=== PATIENT | male | born 1965 | race Caucasian/White ===

== ENCOUNTER 2019-12-27 06:50 | Emergency (ER) | payer OTHER ==
[~2019-12-27] VITALS: Ht 175 cm; Wt 109.5 kg
[2019-12-27] MEDS ORDERED: TETANUS,DIPTH,PERTUSS P/F (BOOSTRIX) 0.5 ML VIAL IM ONE (07:15)
[2019-12-27] MEDS ORDERED: AMPICILLIN/SULBACTAM INJECTION 3 GM in NS (IVPB) 100 ML IV ONE (07:15)
[2019-12-27] MEDS ORDERED: ACETAMINOPHEN 325 MG TABLET PO ONE (07:15)
[2019-12-27] MEDS ORDERED: KETOROLAC 30 MG/ML VIAL IVP ONE (07:15)
--- NOTE | 2019-12-27 07:17 | ED General ---
General Stated Complaint: RIGHT HAND INJURY,CAT BITE History of Present Illness Date Seen by Provider: Dec 27, 2019 Time Seen by Provider: 06:52 Initial Comments The patient is a 54-year-old male with a history of hypertension and nephrolithiasis. His tetanus is not up-to-date. 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 He presents with concern for acute onset of right greater than left hand pain with onset last night after a cat he was helping a neighbor get down from a tree bit and scratched him extensively on both hands. Cat belongs to his neighbor and he was told its immunizations are up-to-date. Patient's most significant discomfort is noted to the volar aspect of his proximal right fifth digit which has bite neal and is contused and mildly swollen. Discomfort extends over the palmar hand proximal to this. He does have bites and scratches noted on both hands. He woke up this morning and pain and swelling were worse instead of better so he decided to come in for evaluation. He has not had any fevers, nausea or vomiting or other systemic symptoms. He is in no distress. He took Tylenol last night without relief of symptoms. Allergies and Home Medications Allergies Coded Allergies: No Known Drug Allergies (Unverified , 12/27/19) Home Medications Acetaminophen 500 Mg Tablet, 500 MG PO Q6H Prescribed by: CHARISMA MONCAAD on 12/27/19722 Amoxicillin/Potassium Clav 1 Each Tablet, 1 TAB PO BID Prescribed by: CHARISMA MONCADA on 12/27/19722 Diclofenac Potassium 50 Mg Tablet, 50 MG PO Q8H Prescribed by: CHARISMA MONCADA on 12/27/19722 Patient Home Medication List Home Medication List Reviewed: Yes Review of Systems Review of Systems Constitutional: see HPI All Other Systems Reviewed Negative Unless Noted: Yes (Negative excepted noted.) Past Kashmec-Svxxba-Bnkqso Hx Past Med/Social Hx: Reviewed Nursing Past Med/Soc Hx Patient Social History Recent Foreign Travel: No Contact w/Someone Who Travel: No Family Medical History Reviewed Nursing Family Hx Physical Exam Vital Signs Vital Signs - First Documented 12/27/19 07:15 Temp 36.8 Pulse 85 Resp 16 B/P (MAP) 143/96 (112) Pulse Ox 98 Capillary Refill : Height, Weight, BMI Height: '" Weight: lbs. oz. kg; BMI Method: General Appearance: No Apparent Distress Comments This is an older male appearing nontoxic and in no acute distress. Head is normocephalic and atraumatic. Neck supple and nontender. Oropharynx is moist. Lungs are clear to auscultation in all stations. There is a normal S1 and S2 without rubs or gallops and capillary refill is appropriate, less than 2 seconds globally. Abdomen is soft, nontender and nondistended. Skin is warm and dry without cyanosis, clubbing or edema. Psychiatrically, the patient demonstrates appropriate mood and affect and is alert. From a musculoskeletal s tandpoint, evaluation of the bilateral upper extremities is remarkable for scattered superficial bites and scratches to both hands, with the worst bite noted to the volar aspect of the right fifth digit proximal to the PIP joint. There is mild pain with ranging at this digit but patient does have full strength at every joint and full range of motion actively and passively at the right small finger. There is no fusiform/circumferential swelling of the affected finger. There is tenderness and mild swelling proximal to the finger over the palmar aspect of the right hand without any erythema. No pain with ranging of any other joint of the bilateral upper extremities which are both neurovascularly intact. Progress/Results/Core Measures Suspected Sepsis SIRS Temperature: Pulse: Respiratory Rate: Blood Pressure / Mean: Results/Orders My Orders Orders - CHARISMA MONCADA MD Iv/Invasive Line Insertion .IV start (12/27/19 07:08) Hand 3 View Left (12/27/19 07:08) Hand 3 View Right (12/27/19 07:08) Ketorolac Injection (Toradol Injection) (12/27/19 07:15) Acetaminophen Tablet/Caplet (Tylenol T (12/27/19 07:15) Ampicillin/Sulbactam Injection (Unasyn 3 (12/27/19 07:15) Dipht,Pertuss(Acell),Tet Adult (Boostrix (12/27/19 07:15) Medications Given in ED Current Medications Medications Dose Ordered Sig/Sneha Route Start Time Stop Time Status Last Admin Dose Admin Ampicillin Sodium/ Sulbactam Sodium 3 gm/Sodium Chloride 100 ml @ 200 mls/hr ONCE ONCE IV 12/27/19 07:15 12/27/19 07:44 DC 12/27/19 07:38 200 MLS/HR Diphtheria/ Tetanus/Acell Pertussis 0.5 ml ONCE ONCE IM 12/27/19 07:15 12/27/19 07:16 DC 12/27/19 07:42 0.5 ML Ketorolac Tromethamine 30 mg ONCE ONCE IVP 12/27/19 07:15 12/27/19 07:16 DC 12/27/19 07:38 30 MG Vital Signs/I&O 12/27/19 07:15 Temp 36.8 Pulse 85 Resp 16 B/P (MAP) 143/96 (112) Pulse Ox 98 Capillary Refill : Progress Note : Time: 07:17 Progress Note Right upper extremity with right fifth digit erythematous and swollen and tender at the volar aspect. Scattered bites and scratches elsewhere on the hands. No fusiform swelling/sausage digit at this time. Given the amount of discomfort and rather rapid progression of swelling, we will place an IV and give a dose of IV Unasyn as well as anti-inflammatory medicine as noted and will check plain films of the hands to ensure no retained tooth fragments or other foreign body and will plan for likely discharge with an Augmentin course and anti-inflammatories to follow up very closely with primary care in the next 2-4 days (we will refer pt to [facility]). Will update tetanus. 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 Patient has received his Unasyn dose and Toradol and is feeling better and is ready to go home. We will proceed with discharge as per plan. The patient understands that if he feels worse instead of better or develops other new symptoms of concern that he will need to return to the emergency department right away for reevaluation. All questions are answered. Diagnostic Imaging Comments HAND 3 VIEW LEFT INDICATION: Cat bite on bilateral hands TECHNIQUE: Three views of the left hand. CORRELATION STUDY: None FINDINGS: No acute bony abnormality. Alignment anatomic. Very mild narrowing through the interphalangeal joint. There are several small punctate metallic like soft tissue foreign bodies present. One at the tip of the thumb, distal middle finger and little finger as well as interposed between the 3rd and 4th metacarpals. Additional punctate density adjacent to the base of the thumb. IMPRESSION: 1. Negative for acute bony abnormality of the hand. Several small scattered likely metallic soft tissue foreign bodies. Dictated on workstation # [id number] HAND 3 VIEW RIGHT INDICATION: Cat bite on bilateral hands TECHNIQUE: Three views of the right hand. CORRELATION STUDY: None FINDINGS: No acute bony abnormality. Mild degenerative changes through the interphalangeal joints. No inocencio bony destructive or periarticular destruction. Soft tissues appearing generally unremarkable. No soft tissue foreign body. IMPRESSION: 1. Negative for acute bony abnormality of the hand. Dictated on workstation # [id number] Departure Impression Primary Impression: Cat bite of right hand including fingers with infection Qualified Codes: S61.451A - Open bite of right hand, initial encounter; S61.259A - Open bite of unspecified finger without damage to nail, initial encounter; L08.9 - Local infection of the skin and subcutaneous tissue, unspecified; W55.01XA - Bitten by cat, initial encounter Additional Impression: Cat bite of left hand Qualified Codes: S61.452A - Open bite of left hand, initial encounter; W55. 01XA - Bitten by cat, initial encounter Disposition: HOME, SELF-CARE Condition: Stable Departure-Patient Inst. Referrals: TIARA WALKER MD Patient Instructions: Animal and Human Bites, Animal Bites (DC) Add. Discharge Instructions: We are referring you to Dr. Walker in the [facility] clinic in this building for close outpatient follow-up. Please call today to make a follow-up appointment for Monday or Monday so that your wounds can be rechecked in the office. Use the pain medication and antibiotic as instructed for your symptoms and make sure to take the antibiotic until the entire prescription is gone. If symptoms worsen instead of getting better over the next day or two, or if you develop fevers or any other new and concerning symptoms, please return to the emergency department right away for reevaluation. Scripts Acetaminophen (Tylenol Extra Strength) 500 Mg Tablet 500 MG PO Q6H for Pain, #50 TAB Prov: CHARISMA MONCADA MD 12/27/19 Diclofenac Potassium (Diclofenac Potassium) 50 Mg Tablet 50 MG PO Q8H for pain/swelling, #30 TAB Prov: CHARISMA MONCADA MD 12/27/19 Amoxicillin/Potassium Clav (Augmentin 875-125 Tablet) 1 Each Tablet 1 TAB PO BID for 10 Days, #20 TAB 0 Refills Prov: CHARISMA MONCADA MD 12/27/19 Work/School Note: Family Work Note Patient Received Medical Care In the Emergency Department On: Dec 27, 2019 Patient Will Be Able to Return to Work/School On: Dec 30, 2019 Patient Restrictions: Non-weightbearing with right hand until Monday due to injury CHARISMA MONCADA MD Dec 27, 2019 07:17
[2019-12-27] MEDS ORDERED: AMOX-358 PO (07:23)
[2019-12-27] MEDS ORDERED: ACET-2267 PO (07:23)
[2019-12-27] MEDS ORDERED: DICL50TA4 PO (07:23)
--- NOTE | 2019-12-27 07:28 | Diagnostic Imaging Report ---
INDICATION: Cat bite on bilateral hands TECHNIQUE: Three views of the right hand. CORRELATION STUDY: None FINDINGS: No acute bony abnormality. Mild degenerative changes through the interphalangeal joints. No inocencio bony destructive or periarticular destruction. Soft tissues appearing generally unremarkable. No soft tissue foreign body. IMPRESSION: 1. Negative for acute bony abnormality of the hand. Dictated by: Dictated on workstation # [id number]
--- NOTE | 2019-12-27 07:31 | Diagnostic Imaging Report ---
INDICATION: Cat bite on bilateral hands TECHNIQUE: Three views of the left hand. CORRELATION STUDY: None FINDINGS: No acute bony abnormality. Alignment anatomic. Very mild narrowing through the interphalangeal joint. There are several small punctate metallic like soft tissue foreign bodies present. One at the tip of the thumb, distal middle finger and little finger as well as interposed between the 3rd and 4th metacarpals. Additional punctate density adjacent to the base of the thumb. IMPRESSION: 1. Negative for acute bony abnormality of the hand. Several small scattered likely metallic soft tissue foreign bodies. Dictated by: Dictated on workstation # [id number]
[2019-12-27 08:31] VITALS: BP 130/84
== END 2019-12-27 08:31 | disposition home or self-care (01) ==
LOC: ER FS 06:54
DX: S61.451A Open bite of right hand, initial encounter (principal); S61.259A Open bite of unspecified finger without damage to nail, initial encounter; S61.452A Open bite of left hand, initial encounter; L08.9 Local infection of the skin and subcutaneous tissue, unspecified; Z23 Encounter for immunization; W55.01XA Bitten by cat, initial encounter
CPT/HCPCS: 73130; 90471; 90715; 96374